=== PATIENT | male | born 1985 | race Caucasian/White ===

== ENCOUNTER 2017-03-20 08:49 | Emergency (ER) | payer OTHER ==
[~2017-03-20] VITALS: Ht 175.3 cm; Wt 65.8 kg
--- NOTE | 2017-03-20 09:00 | NUR ---
DR SHERMAN AT THE BEDSIDE FOR EVAL AND EXAM.
[2017-03-20] MEDS: ONDANSETRON ODT 4 MG TAB.RAPDIS SL ONE (09:08)
--- NOTE | 2017-03-20 09:08 | NUR ---
FLU AND STREP SWAB COLLECTED AND SENT TO LAB PER MD ORDER.
[2017-03-20] MEDS: IBUPROFEN 600 MG TABLET PO ONE (09:15)
[2017-03-20] MEDS ORDERED: IBUPROFEN 600 MG TABLET ONE (09:16)
[2017-03-20] MEDS ORDERED: ONDANSETRON ODT 4 MG TAB.RAPDIS ONE (09:16)
[2017-03-20 10:41] VITALS: BP 116/73
--- NOTE | 2017-03-20 10:48 | NUR ---
Patient discharged to home in stable conditon. Written and verbal after care instructions given. Patient verbalizes understanding of instructions.
== END 2017-03-20 10:48 | disposition home or self-care (01) ==
LOC: ER 08:49
DX: J02.9 Acute pharyngitis, unspecified (principal); R52 Pain, unspecified; F10.10 Alcohol abuse, uncomplicated; F17.200 Nicotine dependence, unspecified, uncomplicated
CPT/HCPCS: 36415; 86403; 87070; 87400; A4663; Q0162